=== PATIENT | male | born 1945 | race Caucasian/White ===

== ENCOUNTER → 2018-11-22 | Outpatient (CLI) | payer MEDICARE ==
--- NOTE | 2018-11-22 14:17 | CT ---
EXAMINATION TYPE: CT brain w con DATE OF EXAM: 11/22/2018 COMPARISON: None INDICATION: Right arm numbness and history of cow aneurysms with surgical clipping. DLP: 1047.5 mGycm, Automated exposure control for dose reduction was used. CONTRAST: [address] of the brain is performed utilizing 3 mm thick sections through the posterior fossa and 3 mm thick sections through the remaining calvarium. Study is performed within 24 hours of [facility] to the [facility]. No abnormal hyperdensity is present to suggest an acute intracranial hemorrhage. No mass lesion is evident. No acute infarcts are evident. Ventricles and sulci are appropriate for the patient age. There is some prominence of the frontal tem poral extra-axial space on the right. There has been a prior craniotomy in the right temporal region. There is a aneurysm clip which appears to be near the distal basilar artery. No suspicious enhanceme nt is evident on this postcontrast study. Paranasal sinuses and mastoid air cells within the [id number] are clear. IMPRESSIONS: 1. No suspicious acute intracranial process.
--- NOTE | 2018-11-22 14:56 | CT ---
EXAMINATION TYPE: CT angio head DATE OF EXAM: 11/22/2018 12:17 PM COMPARISON: None HISTORY: Right arm numbness and history of cow aneurysms with surgical clipping. CT DLP: 964.8 mGycm Automated exposure control for dose reduction was used. TECHNIQUE: Performed with IV Contrast, patient injected with 100 mL of Isovue 370. TECHNIQUE: Axial images 3 mm thick sections. Three-D reconstructed images performed separately by the technologist are reviewed.. FINDINGS: Internal carotid arteries bifurcate into A1 and M1 segments. Left A1 segment is slightly hypoplastic. There is an azygos A2 segment. Middle cerebral artery branches appear unremarkable. No aneurysmal di latation is evident. Posterior cerebral vasculature is normal. The aneurysm clip causes some beam reyes dening artifact with mild limitation. Faint posterior communicating arteries may be present better vi sualized on the left IMPRESSION: 1. NO SUSPICIOUS CHANGES TO SUGGEST ANEURYSM WITHIN THE MODOC OF PASTOR. 2. PRIOR ANEURYSM CLIPPING IS EVIDENT WITHIN THE POSTERIOR CIRCULATION.
== END | disposition home or self-care (01) ==
LOC: RADCTMAIN 10:24
PROVIDERS: ATTEND Psychiatry & Neurology Neurology
DX: I67.1 Cerebral aneurysm, nonruptured (principal); R53.1 Weakness; R20.0 Anesthesia of skin
CPT/HCPCS: 82565; 84520; 70496; 70460; 36415; Q9967